=== PATIENT | female | born 1985 | race Two or more races ===

== ENCOUNTER 2024-11-30 14:42 | Outpatient (CLI) | payer OTHER ==
[2024-11-30 15:00] VITALS: BP 112/75
[2024-11-30 15:50] VITALS: BP 112/75
[2024-11-30] MEDS ORDERED: PRENATAL TABLE1 EAC4 PO (16:20)
[2024-11-30] MEDS ORDERED: IRON18 M1 PO (16:20)
[2024-11-30] MEDS ORDERED: VALTREX1000 MG PO (16:20)
[2024-11-30] MEDS ORDERED: AUGMENTIN XR 11 EACH PO (16:21)
[2024-11-30 17:01] VITALS: BP 112/75
== END 2024-11-30 17:12 | disposition home or self-care (01) ==
LOC: NST 14:42 → OBS/DEL 14:42
PROVIDERS: ATTEND General Practice
DX: O36.8330 Maternal care for abnormalities of the fetal heart rate or rhythm, third trimester, not applicable or unspecified (principal); Z3A.38 38 weeks gestation of pregnancy